=== PATIENT | male | born 1975 | race Two or more races ===

== ENCOUNTER 2023-01-16 17:31 | Emergency (ER) | payer BC ==
[~2023-01-16] VITALS: Ht 185.4 cm; Wt 91.2 kg
--- NOTE | 2023-01-16 17:45 | NUR ---
Patient [id number] able to express his concerns. Patient able to provide health history. Discussed plan of care, pt verbalized agreement.
[2023-01-16] MEDS ORDERED: TDAP [DIPH/PERTUSSIS/TET] 0.5 ML VIAL IM ONE ×2 (18:00→18:20)
[2023-01-16] MEDS ORDERED: ACETAMINOPHEN 325 MG TABLET ONE (18:20)
--- NOTE | 2023-01-16 18:27 | NUR ---
Vaccine administered, verified with 2nd RN and Charge Nurse.
[2023-01-16] MEDS ORDERED: ACETAMINOPHEN 325 MG TABLET PO ONE (18:30)
[2023-01-16] MEDS ORDERED: OXYMETAZOLINE HCL NASAL SPRAY 30 ML BOTTLE NS ONE ×2 (19:30→19:32)
--- NOTE | 2023-01-16 19:35 | NUR ---
RECIEVED PATIENT COMFORTABLE LAYING IN BED. NO C/O OF DIZZINESS OR CHANGE IN VISION. "ONLY A LITTLE SORE."
[2023-01-16] MEDS ORDERED: TYL2T PO (19:45)
--- NOTE | 2023-01-16 20:16 | NUR ---
Patient discharged to home in stable condition. Written and verbal after care instructions given. Patient verbalizes understanding of instruction.
[2023-01-16 20:17] VITALS: BP 132/68
== END 2023-01-16 20:18 | disposition home or self-care (01) ==
LOC: ER 17:40
DX: S01.21XA Laceration without foreign body of nose, initial encounter (principal); W21.11XA Struck by baseball bat, initial encounter; Y93.89 Activity, other specified; Y92.89 Other specified places as the place of occurrence of the external cause; Y99.8 Other external cause status
CPT/HCPCS: 70486-TC; 90715